=== PATIENT | male | born 1990 | race African-American/Black ===

== ENCOUNTER 2022-04-02 07:32 | Emergency (ER) | payer OTHER, SELFPAY ==
[2022-04-02 07:45] VITALS: BP 138/85; PULSE 70; RESP 18; TEMP 36.6; O2SAT 99; BMI 27.3
--- NOTE | 2022-04-02 07:50 | DI.RAD.S_ITS ---
PROCEDURE: XR KNEE LT 3V INDICATIONS: board fell on knee TECHNIQUE: 3 views of the knee were acquired. COMPARISON: None. FINDINGS: Bones: No displaced fracture. No dislocation. Soft tissues: No significant joint effusion. IMPRESSION: No acute radiographic abnormality. If there is high concern for further derangement, consider MRI evaluation. Dictated by: Cristhian Castaneda M.D. on 04/02/2022 at 8:42 Approved by: Cristhian Castaneda M.D. on 04/02/2022 at 8:42
--- NOTE | 2022-04-02 07:54 | ED.LOWEXIN ---
HPI - Extremity Injury (Lower) General Chief Complaint: Extremity Injury, Lower Stated Complaint: board fell and into kneecap Time Seen by Provider: 04/02/22 07:41 Source: patient Mode of arrival: Family Vehicle History of Present Illness HPI Narrative: Patient is a 31-year-old male who presents with left knee injury. 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 He has been ambulatory it does hurt mildly when he strains it. No significant other injuries. Related Data Allergies Allergy/AdvReac Type Severity Reaction Status Date / Time No Known Allergies Allergy Uncoded 04/02/22 07:44 Review of Systems Review of Systems Narrative: GENERAL: Denies chills,fever HEENT: Denies throat pain RESPIRATORY: Denies dyspnea, cough, wheezing CARDIOVASCULAR: Denies chest pain, palpitations GASTROINTESTINAL: Denies nausea, vomiting MUSCULOSKELETAL: See HPI SKIN: No rash, no laceration, no pruritus NEUROLOGIC: Denies weakness, dizziness, headache, numbness 8 point review of systems is negative except for those stated above and HPI Patient History Social History Smoking Status: Former smoker Smoking Status: Former smoker tobacco type: cigarettes alcohol intake frequency: 0-2 drinks per day Substance Use Type: does not use Exam Initial Vital Signs Initial Vital Signs: Vital Signs Temperature 97.9 F 04/02/22 07:45 Pulse Rate 70 04/02/22 07:45 Respiratory Rate 18 04/02/22 07:45 Blood Pressure 138/85 04/02/22 07:45 Pulse Oximetry 99 04/02/22 07:45 Oxygen Delivery Method 04/02/22 07:45 GENERAL: Well-appearing, well-nourished and in no acute distress. CARDIOVASCULAR: peripheral pulses in tact, cap refill <2 sec RESPIRATORY: No respiratory distress, speaks in full sentences without difficulty EXTREMITIES: Normal range of motion, no clubbing or edema. Neurovascularly intact Left knee stable minimal swelling NEUROLOGICAL: Cranial nerves II through XII grossly intact. Normal gait and speech. SKIN: Warm, dry, no petechiae, no rashes or lesions. Course Orders Ordered: ED Orders 04/02/22 07:50 XR knee LT 3V Stat Vital Signs Vital signs: Vital Signs - 8 hr 04/02/22 07:45 Temperature 97.9 F Pulse Rate 70 Respiratory Rate 18 Blood Pressure 138/85 Pulse Oximetry 99 Oxygen Delivery Method Room Air MDM - Extremity Injury (Lower) Imaging Data Extremity x-ray #1: Radiologist's Impression: XRay Report Signed Patient: Mina Simmons I MR#: [id number] : 1990 Acct:[id number] Age/Sex: 31 / M Date of Service: 04/02/22 Loc: ED Accession Number: [id number] ?? Procedure: XR knee LT 3V Ordering Provider: Daina Antunez D.O. PROCEDURE:? XR KNEE LT 3V ? INDICATIONS:? board fell on knee ? TECHNIQUE:? 3 views of the knee were acquired.? ? COMPARISON:? None. ? FINDINGS:? ? Bones:? No displaced fracture.? No dislocation. ? Soft tissues:? No significant joint effusion. ? ? IMPRESSION:? No acute radiographic abnormality.? If there is high concern for further derangement, consider MRI evaluation. ? ? Dictated by: Cristhian Castaneda M.D. on 04/02/2022 at 8:42 ? ? [facility] Narrative Medical decision making narrative: X-rays negative exam is very minimal there is some mild swelling. Discharge Plan Departure Patient Disposition: Home Clinical Impression: Contusion of knee, left Instructions: Contusion Activity Restrictions/Additional Instructions: *You have been diagnosed with left knee contusion *What to do: At this time there is no broken bone. Elevate ice. You may wear a knee brace for support. *Continue to take medications as directed Ibuprofen 600 mg every 6 hours if needed for [id number] pain *Follow up with your primary care provider in 2-3 days or call [phone] *Return to ER if you should have [such as] [or] any new, worsening or concerning symptoms
== END 2022-04-02 08:56 | disposition home or self-care (01) ==
PROVIDERS: Emergency Provider Emergency Medicine
DX: S80.02XA Contusion of left knee, initial encounter (principal); W22.8XXA Striking against or struck by other objects, initial encounter; Y99.0 Civilian activity done for income or pay
CPT/HCPCS: 73562; 99283